=== PATIENT | male | born 1990 | race Caucasian/White ===

== ENCOUNTER → 2024-05-22 | Outpatient (REF) | payer BC, OTHER | LOC: M SMT 12:33 | PROVIDERS: ATTEND Urology | DX: Z30.2 Encounter for sterilization (principal) ==

== ENCOUNTER → 2024-11-14 | Outpatient (REF) | payer BC, OTHER ==
[2024-11-14 13:03] LABS: SEMEN APPEARANCE OPAQUE (OPAQUE); SEMEN VISCOSITY LIQUID (LIQUID); SEMEN VOLUME 5.5 ml (2.0-5.0); WBC CONCENTRATION <=1 M/ml (<=1 M/ml)
== END ==
LOC: M LAB REF 12:40 → M SMT 12:40
PROVIDERS: ATTEND Urology
DX: Z30.8 Encounter for other contraceptive management (principal)

== ENCOUNTER → 2025-01-15 | Outpatient (REF) | payer BC, OTHER ==
[2025-01-15 12:39] LABS: SEMEN APPEARANCE OPAQUE (OPAQUE); SEMEN VISCOSITY LIQUID (LIQUID); SEMEN VOLUME 5.8 ml (2.0-5.0); SEMEN pH 8.5 (7.0-8.0); WBC CONCENTRATION >1 M/ml (<=1 M/ml)
== END ==
LOC: M SMT 12:06
PROVIDERS: ATTEND Urology
DX: Z30.8 Encounter for other contraceptive management (principal)